=== PATIENT | female | born 1980 | race Caucasian/White ===

== ENCOUNTER → 2019-05-10 | Outpatient (CLI) | payer OTHER ==
[2019-05-10 15:44] LABS: HCT 39.9 % (34.0-46.0); HGB 13.3 gm/dL (11.4-16.0); MCH 30.5 pg (25.0-35.0); MCHC 33.4 g/dL (31.0-37.0); MCV 91.3 fL (80.0-100.0); Mean Platelet Volume 7.1; Platelet Count 278 k/uL (150-450); RBC 4.37 m/uL (3.80-5.40); WBC 8.1 k/uL (3.8-10.6)
[2019-05-10 23:50] LABS: African American GFR (CKD) 83.3 (60.0-200.0); Albumin 4.8 g/dL (3.80-4.90); Albumin/Globulin Ratio 2.53 (1.60-3.17); Calcium 9.3 mg/dL (8.7-10.3); Globulin 1.9 g/dL (1.6-3.3); Non-African American GFR(CKD) 71.9 (60.0-200.0); Potassium 3.8 mmol/L (3.5-5.5); Total Protein 6.7 g/dL (6.2-8.2)
[2019-05-10 23:58] LABS: Prolactin 7.7 ng/mL (2.8-29.2); T4, Free (Free Thyroxine) 1.3 ng/dL (0.80-1.80)
[2019-05-11 00:22] LABS: Thyroid Peroxidase Antibodies 41.6 U/mL (0.0-60.0)
[2019-05-11 05:57] LABS: ACTH 11.7 pg/mL (0.00-45.99)
== END | disposition home or self-care (01) ==
LOC: LABWHC1 14:57
PROVIDERS: ATTEND Internal Medicine Endocrinology, Diabetes & Metabolism
DX: R53.83 Other fatigue (principal)
CPT/HCPCS: 36415; 80053; 82024; 82533; 82607; 84146; 84439; 84443; 84481; 85027; 86376